=== PATIENT | male | born 2000 | race Caucasian/White ===

== ENCOUNTER 2021-08-01 19:37 | Emergency (ER) | payer OTHER ==
[~2021-08-01] VITALS: Ht 190.5 cm; Wt 83.9 kg
[2021-08-01] MEDS ORDERED: KETOROLAC 60 MG/2 ML VIAL. IM ONE (20:30)
--- NOTE | 2021-08-01 20:37 | PHYS DOC ---
Past History Past Surgical History: No Surgical History (HEMANTH GOVEA APRN) Alcohol Use: None (HEMANTH GOVEA APRN) General Adult EDM: Chief Complaint: KNEE INJURY HPI: HPI: Patient is a male presents with bilateral knee pain. Patient denies trauma. No known injury. Patient states that he saw his PCP who gave him a topical cream which gave him no relief. Patient has also been taking ibuprofen which provided some relief. No swelling noted. Patient states that pain is worse when he squats down. Improves with sitting. Denies health history. (HEMANTH GOVEA APRN) Review of Systems: Review of Systems: ROS At least 10 ROS systems have been reviewed and are negative except as documented in the HPI. General: Negative except as outlined in HPI above. Skin: Negative except as outlined in HPI above. HEENT: Negative except as outlined in HPI above. Neck: Negative except as outlined in HPI above. Respiratory: Negative except as outlined in HPI above.. Cardiovascular: Negative except as outlined in HPI above. Abdomen: Negative except as outlined in HPI above. : Negative except as outlined in HPI above. Back/MSK: Negative except as outlined in HPI above. Neuro: Negative except as outlined in HPI above. Psych: Negative except as outlined in HPI above. (HEMANTH GOVEA APRN) Current Medications: Current Meds: Current Medications Medications (Trade) Dose Ordered Sig/Mehnaz Start Time Stop Time Status Last Admin Dose Admin Ketorolac Tromethamine (Toradol Im) 60 mg 1X ONCE 08/01/21 20:30 08/01/21 20:31 08/01/21 20:23 60 MG (HEMANTH GOVEA APRN) Allergies: Allergies: Allergies Coded Allergies Type Severity Reaction Last Updated Verified No Known Drug Allergies 08/01/21 No (HEMANTH GOVEA APRN) Physical Exam: PE: Constitutional: Well developed, well nourished, no acute distress, non-toxic appearance. [] HENT: Normocephalic, atraumatic, bilateral external ears normal, oropharynx moist, no oral exudates, nose normal. [] Eyes: PERRLA, EOMI, conjunctiva normal, no discharge. [] Neck: Normal range of motion, no tenderness, supple, no stridor. [] Cardiovascular:Heart rate regular rhythm, no murmur [] Lungs & Thorax: Bilateral breath sounds clear to auscultation [] Abdomen: Bowel sounds normal, soft, no tenderness, no masses, no pulsatile masses. [] Skin: Warm, dry, no erythema, no rash. [] Back: No tenderness, no CVA tenderness. [] Extremities: Bilateral knee tenderness, no cyanosis, no clubbing, ROM intact, no edema. [] Neurologic: Alert and oriented X 3, normal motor function, normal sensory function, no focal deficits noted. [] Psychologic: Affect normal, judgement normal, mood normal. [] (HEMANTH GOVEA APRN) Current Patient Data: Vital Signs: Vital Signs Date Time Temp Pulse Resp B/P (MAP) Pulse Ox O2 Delivery O2 Flow Rate FiO2 08/01/21 19:45 97.9 63 20 133/79 (97) 98 Room Air (HEMANTH GOVEA APRN) EKG: EKG: [] (HEMANTH GOVEA APRN) Radiology/Procedures: Radiology/Procedures: []Exam: Left knee 3 views. Right knee 3 views INDICATION: Bilateral knee pain TECHNIQUE: Frontal, lateral oblique views of the right and left knee Comparisons: None FINDINGS: Left knee: Bone mineralization is normal. No acute or healed fractures. Soft tissues are unremarkable. Joint spaces are well-maintained. Right knee: Bone mineralization is normal. No acute or healed fractures. Soft tissues are unremarkable. Joint spaces are well-maintained. IMPRESSION: 1. No acute osseous abnormality of the right knee. 2. No acute osseous abdomen the of the left knee. Electronically signed by: Xavier Cowart MD (08/01/2021 9:14 PM) JACOB (HEMANTH GOVEA APRN) Heart Score: C/O Chest Pain: No Risk Factors: Risk Factors: DM, Current or recent (<one month) smoker, HTN, HLP, family history of CAD, obesity. Risk Scores: Score 0 - 3: 2.5% MACE over next 6 weeks - Discharge Home Score 4 - 6: 20.3% MACE over next 6 weeks - Admit for Clinical Observation Score 7 - 10: 72.7% MACE over next 6 weeks - Early Invasive Strategies (HEMANTH GOVEA APRN) Course & Med Decision Making: Course & Med Decision Making Pertinent Labs and Imaging studies reviewed. (See chart for details) [] 21-year-old male presents with bilateral knee pain. Denies trauma or known injury. Patient given IM Toradol for pain. X-ray is unremarkable. Discussed results with patient. Advised patient to take ibuprofen at home. Follow back up with PCP for further management. Patient may need to do PT if pain continues. (HEMANTH GOVEA APRN) Course & Med Decision Making I was the Attending physician on the above date of service of this patient. This patient was evaluated, examined, treated, and dispositioned from the emergency department by the mid-level practitioner. Although I was working at the time , no assistance was requested. Electronically signed, Nate Bradley DO (NATE BRADLEY DO) Dragon Disclaimer: Dragdaniel Disclaimer: This electronic medical record was generated, in whole or in part, using a voice recognition dictation system. (HEMANTH GOVEA APRN) Departure Departure: Impression: Primary Impression: Knee pain Qualified Codes: M25.561 - Pain in right knee; M25.562 - Pain in left knee Disposition: HOME / SELF CARE / HOMELESS Condition: STABLE Referrals: JESSICA SANTIAGO DO (PCP) Patient Instructions: Knee Pain, [id number] Additional Instructions: You were seen in the emergency room for bilateral knee pain. X-ray was unremarkable. Ibuprofen at home. Ice to the area. Call your doctor on Tuesday make an appointment for possible further management such as PT EMERGENCY DEPARTMENT GENERAL DISCHARGE INSTRUCTIONS Thank you for coming to [facility] (ED) today and trusting us with you care. We trust that you had a positivie experience in our Emergency Department. If you wish to speak to the department management, you may call the director at [phone]. YOUR FOLLOW UP INSTRUCTIONS ARE FOLLOWS: 1. Do you have a private Doctor? If you do not have a private doctor, please ask for a resource list of physicians or clinics that may be able to assist you with follow up care. 2. The Emergency Physician has interpreted your x-rays. The X-Ray specialist will also review them. If there is a change in the findings, you will be notified in 48 hours when at all possible. 3. A lab test or culture has been done, your results will be reviewed and you will be notified if you need a change in treatment. ADDITIONAL INSTRUCTIONS AND INFORMATION: 1. Your care today has been supervised by a physician who is specially trained in emergency care. Many problems require more than one evaluation for a complete diagnosis and treatment. We recommend that you schedule your follow up appointment as recommended to ensure complete treatment of you illness or injury. If you are unable to obtain follow up care and continue to have a problem, or if your condition worsens, we recommend that you return to the ED. 2. We are not able to safely determine your condition over the phone nor are we able to give sound medical advice over the phone. For these safety reasons, if you call for medical advice we will ask you to come to the ED for further evaluation. 3. If you have any questions regarding these discharge instructions please call the ED at [phone]. SAFETY INFORMATION: In the interest of safety, wellness, and injury prevention; we encourage you to wear your sealbelt, if you smoke; quite smoking, and we encourage family to use a protective helmet for bicycling and other sporting events that present an increased risk for head injury. IF YOUR SYMPTOMS WORSEN OR NEW SYMPTOMS DEVELOP, OR YOU HAVE CONCERNS ABOUT YOUR CONDITION; OR IF YOUR CONDITION WORSENS WHILE YOU ARE WAITING FOR YOUR FOLLOW UP APPOINTMENT; EITHER CONTACT YOUR PRIMARY CARE DOCTOR, THE PHYSICIAN WHOSE NAME AND NUMBER YOU WERE GIVEN, OR RETURN TO THE ED IMMEDIATELY. HEMANTH GOVEA APRN Aug 01, 2021 20:37 NATE BRADLEY DO Aug 02, 2021 18:58
--- NOTE | 2021-08-01 21:16 | RAD ---
Exam: Left knee 3 views. Right knee 3 views INDICATION: Bilateral knee pain TECHNIQUE: Frontal, lateral oblique views of the right and left knee Comparisons: None FINDINGS: Left knee: Bone mineralization is normal. No acute or healed fractures. Soft tissues are unremarkable. Joint spa mar are well-maintained. Right knee: Bone mineralization is normal. No acute or healed fractures. Soft tissues are unremarkable. Joint spa mar are well-maintained. IMPRESSION: 1. No acute osseous abnormality of the right knee. 2. No acute osseous abdomen the of the left knee. Electronically signed by: Xavier Cowart MD (08/01/2021 9:14 PM) JACOB
[2021-08-01 21:25] VITALS: BP 121/60
== END 2021-08-01 21:26 | disposition home or self-care (01) ==
LOC: ER 19:37
DX: M25.562 Pain in left knee (principal); M25.561 Pain in right knee
CPT/HCPCS: 73562; 96372; 99283; J1885

== ENCOUNTER 2021-11-15 13:54 | Emergency (ER) | payer OTHER ==
[~2021-11-15] VITALS: Ht 190.5 cm; Wt 83.9 kg
[2021-11-15 13:54] VITALS: BP 120/70
[2021-11-15] MEDS ORDERED: diphenhydrAMINE 50 MG/ML VIAL IVP ONE (14:15)
[2021-11-15] MEDS ORDERED: KETOROLAC 30 MG/ML VIAL. IVP ONE (14:15)
[2021-11-15] MEDS ORDERED: PROCHLORPERAZINE 10 MG/2 ML VIAL. IV ONE (14:15)
[2021-11-15] MEDS ORDERED: IV NORMAL SALINE 1,000ML 1,000 ML IV ONE (14:15)
--- NOTE | 2021-11-15 14:23 | PHYS DOC ---
Past History Past Surgical History: No Surgical History Alcohol Use: None General Adult EDM: Chief Complaint: HEADACHE HPI: HPI: Patient is a 21-year-old male who presents to the emergency department for a posterior headache and neck ache that started on . Patient reports that 2 days ago he thought he had developed a fever but it improved after ibuprofen. Patient reports he has been taking 800 mg of ibuprofen for his headache and it does improve his headache symptoms. He rates his pain 5 out of 10. He reports that this is the worst headache he is ever experienced but does have a history of headaches. He denies thunderclap headache, cough, neck stiffness, congestion, sore throat, nausea, vomiting, blurred or loss of vision, photophobia, sick exposures. He does report phonophobia. Review of Systems: Review of Systems: Constitutional: See HPI Eyes: See HPI HENT: See HPI Respiratory: See HPI GI: See HPI Musculoskeletal: See HPI Neurologic: See HPI Current Medications: Current Meds: Current Medications Medications (Trade) Dose Ordered Sig/Mehnaz Start Time Stop Time Status Last Admin Dose Admin Diphenhydramine HCl (Benadryl) 25 mg 1X ONCE 11/15/21 14:15 11/15/21 14:16 DC Ketorolac Tromethamine (Toradol 30mg Vial) 30 mg 1X ONCE 11/15/21 14:15 11/15/21 14:16 DC Prochlorperazine Edisylate (Compazine) 10 mg 1X ONCE 11/15/21 14:15 11/15/21 14:16 DC Sodium Chloride 1,000 ml @ 1,000 mls/hr 1X ONCE 11/15/21 14:15 11/15/21 15:14 Allergies: Allergies: Allergies Coded Allergies Type Severity Reaction Last Updated Verified No Known Drug Allergies 08/01/21 No Physical Exam: PE: Constitutional: Well developed, well nourished, no acute distress, non-toxic appearance. [] HENT: Normocephalic, atraumatic, bilateral external ears normal, oropharynx moist, no oral exudates, nose normal. [] Eyes: PERRL, 4 mm bilaterally, no nystagmus, EOMI, conjunctiva normal, no discharge. [] Neck: Normal range of motion, no bony spinal tenderness, supple, no neutral rigidity, no stridor. [] Cardiovascular:Heart rate regular rhythm, no murmur [] Lungs & Thorax: Bilateral breath sounds clear to auscultation [] Abdomen: Bowel sounds normal, soft, no tenderness, no masses, no pulsatile masses. [] Skin: Warm, dry, no erythema, no rash. [] Back: No tenderness, normal range of motion Extremities: No tenderness, no cyanosis, no clubbing, ROM intact, no edema. [] Neurologic: Alert and oriented X 3, normal motor function, normal sensory function, no focal deficits noted. [] Psychologic: Affect normal, judgement normal, mood normal. [] Current Patient Data: Labs: Laboratory Tests Test 11/15/21 14:15 Influenza Type A (Rapid) Negative Influenza Type B (Rapid) Negative SARS-CoV-2 Antigen (Rapid) Negative Current Medications Medications (Trade) Dose Ordered Sig/Mehnaz Route PRN Reason Start Time Stop Time Status Last Admin Dose Admin Ketorolac Tromethamine (Toradol 30mg Vial) 30 mg 1X ONCE IVP 11/15/21 14:15 11/15/21 14:16 DC 11/15/21 14:30 Prochlorperazine Edisylate (Compazine) 10 mg 1X ONCE IV 11/15/21 14:15 11/15/21 14:16 DC 11/15/21 14:31 Diphenhydramine HCl (Benadryl) 25 mg 1X ONCE IVP 11/15/21 14:15 11/15/21 14:16 DC 11/15/21 14:29 Sodium Chloride 1,000 ml @ 1,000 mls/hr 1X ONCE IV 11/15/21 14:15 11/15/21 15:14 11/15/21 14:29 Vital Signs: Vital Signs Date Time Temp Pulse Resp B/P (MAP) Pulse Ox O2 Delivery O2 Flow Rate FiO2 11/15/21 13:54 97.3 75 16 120/70 (87) 98 Room Air EKG: EKG: [] Radiology/Procedures: Radiology/Procedures: []PROCEDURE: CT HEAD WO CONTRAST CT head without contrast PQRS statement: CT scans at this facility use dose reduction including either automated exposure control, iterative reconstructions, and /or weight based radiation dosing via mA and kV modification when appropriate to reduce radiation dose to as low as reasonably achievable. HISTORY: Worst headache of life. FINDINGS: No intracranial hemorrhage, mass, hydrocephalus, extra-axial fluid collections or infarction. No acute ischemic change. Basilar cisterns patent. Orbits, mastoids and bones are unremarkable. IMPRESSION: Normal exam. Electronically signed by: Huma Funk MD (11/15/2021 2:37 PM) [id number] DICTATED AND SIGNED BY: HUMA FUNK MD DATE: 11/15/21 1434 CC: JESSE HUANG APRN; JESSICA SANTIAGO DO ~ Heart Score: C/O Chest Pain: N/A Risk Factors: Risk Factors: DM, Current or recent (<one month) smoker, HTN, HLP, family history of CAD, obesity. Risk Scores: Score 0 - 3: 2.5% MACE over next 6 weeks - Discharge Home Score 4 - 6: 20.3% MACE over next 6 weeks - Admit for Clinical Observation Score 7 - 10: 72.7% MACE over next 6 weeks - Early Invasive Strategies Course & Med Decision Making: Course & Med Decision Making Pertinent Labs and Imaging studies reviewed. (See chart for details) [] Patient presents to the emergency department for headache, neck ache, fever and phonophobia that started 3 days ago. Patient does have a history of headaches but reports that this is the worst headache he is ever experienced therefore CT scan was performed of his head. Patient will be tested for influenza and COVID. He is currently afebrile and only had a fever for 1 day. He had negative Kernig's and Burzynski's testing. No altered mental status. Patient does not have any nuchal rigidity and has full range of motion of his neck and denies any pain with range of motion of his neck. I discussed case with supervising physician. Patient will be treated with migraine cocktail and IV fluids. Patient reports that he has resolution of his headache and was sleeping upon reevaluation. Patient likely experiencing tension-like headache/migraine. He is advised to take Tylenol and ibuprofen at home and can add Benadryl. I discussed with patient all findings and diagnostic testing as well as the need to follow-up with PCP for further evaluation and treatment or return to the ER if any new or worsening symptoms. Strict return precautions were also discussed at length. Patient voiced understanding and agreement with the plan. Patient is hemodynamically stable at the time of disposition. Dragon Disclaimer: Dragon Disclaimer: This electronic medical record was generated, in whole or in part, using a voice recognition dictation system. Departure Departure: Impression: Primary Impression: Headache Qualified Codes: G44.209 - Tension-type headache, unspecified, not intractable Disposition: HOME / SELF CARE / HOMELESS Condition: GOOD Referrals: JESSICA SANTIAGO DO (PCP) Patient Instructions: Migraine Headache, [id number], Tension Headache, [id number] Additional Instructions: You are seen in the emergency department today for headache. Imaging was performed of your head that showed no acute findings. You had negative COVID and influenza testing. You are likely experiencing a tension/migraine headache. You can take Tylenol and ibuprofen at home for your pain you can also add Benadryl. Increase your fluids and rest. Lie down in a dark quiet area. Follow-up with your primary care provider tomorrow regarding your ER visit. Return to the emergency department if you develop worsening of your headache, vision changes, intractable nausea or vomiting, high fevers refractory to t reatment, altered mental status or confusion. JESSE HUANG REFINERY OPERATOR ASSISTANT November 15, 2021 14:23
--- NOTE | 2021-11-15 14:39 | RAD ---
CT head without contrast PQRS statement: CT scans at this facility use dose reduction including either automated exposure cont rol, iterative reconstructions, and /or weight based radiation dosing via mA and kV modification when appropriate to reduce radiation dose to as low as reasonably achievable. HISTORY: Worst headache of life. FINDINGS: No intracranial hemorrhage, mass, hydrocephalus, extra-axial fluid collections or infarctio n. No acute ischemic change. Basilar cisterns patent. Orbits, mastoids and bones are unremarkable. IMPRESSION: Normal exam. Electronically signed by: Patrice Funk MD (11/15/2021 2:37 PM) [id number]
[2021-11-15 14:51] LABS: INFLUENZA A PATIENT NEGATIVE (NEGATIVE); INFLUENZA B PATIENT NEGATIVE (NEGATIVE)
== END 2021-11-15 15:03 | disposition home or self-care (01) ==
LOC: ER 13:54
DX: G44.209 Tension-type headache, unspecified, not intractable (principal); M54.2 Cervicalgia; Z20.822 Contact with and (suspected) exposure to COVID-19
CPT/HCPCS: 70450; 87428; 96361; 96374; 96375; 99284; J0780; J1200; J1885; J7030